=== PATIENT | female | born 1985 | race Hispanic/Latino ===

== ENCOUNTER 2020-06-02 20:18 | Emergency (ER) | payer OTHER | END 2020-06-02 22:58 | disposition home or self-care (01) | LOC: EDH 20:18 | DX: B34.9 Viral infection, unspecified (principal); R05 Cough; R09.81 Nasal congestion; H92.01 Otalgia, right ear; Z98.890 Other specified postprocedural states; Z91.041 Radiographic dye allergy status | CPT/HCPCS: 87804 ×2; 87880; 99283; U0003 ==

== ENCOUNTER → 2020-09-04 | Outpatient (CLI) | payer OTHER | END | disposition home or self-care (01) | LOC: RAH 13:45 | PROVIDERS: ATTEND Internal Medicine | DX: Z00.01 Encounter for general adult medical examination with abnormal findings (principal); R22.9 Localized swelling, mass and lump, unspecified | CPT/HCPCS: 71046; 76705 ==